=== PATIENT | female | born 1995 | race Caucasian/White ===

== ENCOUNTER 2019-05-19 13:04 | Day surgery (SDC) | payer OTHER ==
[2019-05-19] MEDS ORDERED: hydrALAZINE 20 MG/ML VIAL SLOW IVP PRN (14:36)
[2019-05-19] MEDS ORDERED: Metoclopramide HCl 10 MG/2 ML VIAL IVP PRN (14:37)
[2019-05-19] MEDS ORDERED: diphenhydrAMINE 50 MG/ML VIAL IVP PRN (14:39)
[2019-05-19] MEDS ORDERED: Lactated Ringer's 1,000 ML IV SCH (14:45)
[2019-05-19 15:02] VITALS: BMI 35.4
[2019-05-19] MEDS ORDERED: Fioricet 325/50/40 mg Tablet PO PRN (15:11)
--- NOTE | 2019-05-19 22:11 | PRG ---
DATE OF SERVICE: 05/19/2019 PRIMARY OB: Sienna Calderon MD CHIEF COMPLAINT: Headache. HISTORY OF PRESENT ILLNESS: The patient is a 23-year-old, G1, P0 female presenting to Labor and Delivery shortly after awaking for a headache that she rates a 7/10. The patient reports that she woke up this morning feeling numbness in her hand that she reports later went to her face and that resolved spontaneously and later developed headache that she reports is bilateral. The patient denies any history of headaches such as this one. Denies any history of migraines. Denies nausea, vomiting, or any specific light or sound sensitivity. The patient has not taken anything at home in an attempt to treat her headache. The patient denies any recent illness, fever, fall, headache, chest pain, shortness of breath, nausea, vomiting, diarrhea, constipation, hip problems, knee problems, muscle weakness, any vaginal bleeding, leakage of fluid, urinary urgency, or frequency. PAST MEDICAL HISTORY: Negative. PAST SURGICAL HISTORY: Noncontributory. ALLERGIES: AMOXICILLIN, CEFTIBUTEN, SULFAMETHOXAZOLE, AND TRIMETHOPRIM. SOCIAL HISTORY: Denies drug, alcohol, or tobacco use. CURRENT MEDICATIONS: vitamins. OB LABS: Unavailable at time of dictation. REVIEW OF SYSTEMS: Per HPI. PHYSICAL EXAMINATION: VITAL SIGNS: Blood pressure 103/63, heart rate of 81, and saturating 100% on room air. GENERAL: The patient does not appear to be in any distress. She has a pleasant affect and mood with frequent smiling. She is alert, oriented, cooperative, and pleasant to interact with. HEAD: Normocephalic and atraumatic. LUNGS: Clear to auscultation bilaterally. HEART: Has regular rate and rhythm. ABDOMEN: Gravid, soft, nontender. EXTREMITIES: Nontender and nonedematous. LABORATORY DATA: heart tracing shows the fetus with baseline in the 120s with moderate long-term variability, positive 15 x 15 accelerations, no decelerations and no contractions on the tocometer. The patient was treated with Reglan, Benadryl, and Fioricet. On re-evaluation, the patient reported that her headache had resolved and was resting in the room. The patient has been given one dose of Reglan, Benadryl, and Fioricet. ASSESSMENT AND PLAN: The patient is a 23-year-old female presenting with a headache that by history sounded as a possible migraine with presenting aura of tingling on the face. This did resolve with Reglan, Benadryl, and Fioricet. The patient was discharged home with reassurance and asked to follow up with her primary OB as scheduled. Job ID: [id number]
== END 2019-05-19 16:35 | disposition home health service (06) ==
LOC: L&D/OP 13:04
PROVIDERS: ATTEND Student in an Organized Health Care Education/Training Program
DX: O99.89 Other specified diseases and conditions complicating pregnancy, childbirth and the puerperium (principal); R51 Headache; Z3A.00 Weeks of gestation of pregnancy not specified; Z88.0 Allergy status to penicillin; Z88.1 Allergy status to other antibiotic agents; Z88.2 Allergy status to sulfonamides
CPT/HCPCS: 96360; 96361; 96375; 99282; J1200; J2765

== ENCOUNTER 2019-05-28 09:06 | Inpatient (IN) | payer OTHER ==
[2019-06-04] MEDS ORDERED: Bupivacaine HCl 0.5%/Epinephrine 1:200,000/PF 30 ml Vial ONE (18:00)
[2019-06-04] MEDS ORDERED: Bupivacaine 0.25% HCL 30 ML VIAL ONE (18:00)
[2019-06-04] MEDS ORDERED: hydrALAZINE 20 MG/ML VIAL SLOW IVP PRN (19:38)
[2019-06-04] MEDS ORDERED: Diphenoxylate HCl/Atropine Tablet PO PRN (19:38)
[2019-06-04] MEDS ORDERED: Ondansetron PF 4 MG/2 ML Vial IVP PRN (19:38)
[2019-06-04] MEDS ORDERED: Butorphanol Tartrate 1 MG/ML VIAL SLOW IVP PRN (19:38)
[2019-06-04] MEDS ORDERED: Carboprost 250 MCG/ML AMP IM PRN (19:38)
[2019-06-04] MEDS ORDERED: Zolpidem Tartrate 5 MG TAB PO PRN (19:38)
[2019-06-04] MEDS ORDERED: Methylergonovine 0.2 MG/ML VIAL IM PRN (19:38)
[2019-06-04] MEDS ORDERED: NS / Oxytocin 40 units/1000ml 1,000 ML IV PRN (19:38)
[2019-06-04] MEDS ORDERED: Lidocaine 1% (PF) 30 ML VIAL SC PRN (19:38)
[2019-06-04] MEDS ORDERED: HYDROcodone/Acetaminophen 5/325 mg Tablet PO PRN (19:38)
[2019-06-04] MEDS ORDERED: Misoprostol 200 MCG TAB PR PRN (19:38)
[2019-06-04] MEDS ORDERED: Acetaminophen 500 MG TAB PO PRN (19:38)
[2019-06-04] MEDS ORDERED: Promethazine HCl 25 MG/ML VIAL IM PRN (19:38)
[2019-06-04] MEDS ORDERED: Ibuprofen 800 MG TAB PO PRN (19:38)
[2019-06-04] MEDS ORDERED: NS w/ Oxytocin 10 units 500 ML IV SCH (19:45)
[2019-06-04 20:13] VITALS: BMI 36.3
[2019-06-04 20:37] LABS: Mean Corpuscular HGB CONC 33.8 g/dL (32.0-36.0); Mean Corpuscular Hemoglobin 30.8 pg (27.0-31.0); Mean Corpuscular Volume 91.2 fL (78.0-98.0); Mean Platelet Volume 9.1 fL (7.4-10.4); Platelet Count 140 thou/uL (130-400); RBC Distribution Width 13.3 % (11.5-14.5); Red Blood Cell (RBC) Count 3.88 mill/uL (4.20-5.40); White Blood Cell (WBC) Count 12.1 thou/uL (4.8-10.8)
[2019-06-04] MEDS: Lactated Ringer's 1,000 ML IV SCH (20:46)
[2019-06-04] MEDS: Misoprostol 100 MCG TAB VAG SCH (20:50)
[2019-06-04 22:10] LABS: Syphilis Antibody Nonreactive (Nonreactive); Syphilis Antibody Index 0.04 S/CO (<1.00 Non-Reactive)
[2019-06-04 23:34] LABS: HBSAg Index 0.13 S/CO (0-0.99); Hep B Surf Ag Non-Reactive S/CO (NonReactive)
[2019-06-05] MEDS: Misoprostol 100 MCG TAB VAG SCH ×3 (02:05→09:13)
[2019-06-05] MEDS: Lactated Ringer's 1,000 ML IV SCH ×2 (06:17→17:35)
[2019-06-05] MEDS ORDERED: Fentanyl 4 mcg/Bup 0.1% Cadd 100 ML ONE ×2 (08:45→18:07)
--- NOTE | 2019-06-05 09:07 | PDOC.LDHP ---
Labor and Delivery H&P Chief complaint: scheduled induction HPI: 23yo at 41w0d by LMP here for postdate IOL. Some painful ctx since 299, no VB LOF. Good FM. Current gestational age (weeks): 41 Due date: 05/28/19 Dating criteria: last menstrual period Grav: 1 Para: 0 Current complications: none Abnormal US findings: No Past Medical History: HPV Current medications: pre-kimo vitamins Previous surgical history: other (elbow surgery) Allergies/Adverse Reactions: Allergies Allergy/AdvReac Type Severity Reaction Status Date / Time amoxicillin Allergy Verified 06/04/19 20:03 ceftibuten [From Cedax] Allergy Hives Verified 06/04/19 20:03 sulfamethoxazole Allergy Hives Verified 06/04/19 20:03 [From Bactrim] trimethoprim [From Bactrim] Allergy Hives Verified 06/04/19 20:03 Social history: none - Physical Exam Vital signs reviewed and normal: yes General: NAD Heart: RRR Lungs: CTAB Abdomen: gravid Extremeties: no edema FHT: category 1 [place] contractions every: 3-5min - Vaginal Exam cm dilated: 3 Effacement: 50% Station: -3 (arom clear) - OB Labs Blood type: A RH: positive Antibody Screen: negative HIV: negative RPR: negative HEPSAg: negative 1 hour GCT: negative GBS: negative Urine drug screen: negative Rubella: immune - Assessment L&D Assessment: medically indicated induction - Plan Plan: admit to L&D, cervical ripening, labor augmentation if indicated, informed consent obtained, anesthesia consult for pain management
[2019-06-05] MEDS ORDERED: Fentanyl 100 MCG/2 ML VIAL ONE (09:29)
[2019-06-05] MEDS ORDERED: Fentanyl 100 MCG/2 ML VIAL EPIDURAL SCH (09:45)
[2019-06-05] MEDS ORDERED: ePHEDrine/0.9% NaCl/PF SYRINGE 50 mg/10 ml SLOW IVP PRN (11:04)
[2019-06-05] MEDS ORDERED: Naloxone HCl 0.4 mg/ml Vial IVP PRN ×2 (11:04)
[2019-06-05] MEDS ORDERED: Ondansetron PF 4 MG/2 ML Vial IVP PRN (11:04)
[2019-06-05] MEDS ORDERED: Promethazine HCl 25 MG/ML VIAL IM PRN (11:04)
[2019-06-05] MEDS ORDERED: diphenhydrAMINE 50 MG/ML VIAL IVP PRN (11:04)
[2019-06-05] MEDS ORDERED: Acetaminophen 325 MG TAB PO PRN (11:04)
[2019-06-05] MEDS ORDERED: Lactated Ringer's 500 ML IV PRN (11:04)
[2019-06-05] MEDS ORDERED: Communication Order-Pharmacy FS SCH (11:15)
[2019-06-05] MEDS ORDERED: Fentanyl 4 mcg/Bupivacaine 0.1% Cassette 100 ML EPIDURAL SCH (11:15)
--- NOTE | 2019-06-05 13:24 | PDOC.LDPN ---
Labor & Delivery Progress Note - Subjective Subjective: comfortable - Objective Vital signs reviewed and normal: yes General: NAD Uterine fundus: non tender Dilation: 4 Effacement: 50% Station: -2 FHT: category 1 [place] contractions every: 2-4min Plan: pitocin for augmentation
[2019-06-06] MEDS ORDERED: Azithromycin 500 MG in Sodium Chloride 0.9% 250 ML 250 ML IVPB SCH (00:45)
[2019-06-06] MEDS ORDERED: Bicitra 30 ML UDCUP PO SCH (00:45)
[2019-06-06] MEDS ORDERED: Clindamycin/D5W 900 MG in Premix Bag 1 BAG IVPB SCH (00:45)
[2019-06-06] MEDS ORDERED: Fentanyl 100 MCG/2 ML VIAL ONE (00:53)
--- NOTE | 2019-06-06 00:55 | PDOC.EVN ---
Event Note - Event Note Event Note: 06/06/2019 at 00:40 NRFHT's with deep late decelerations in 50's. Interventions taken to include position changes, discontinuation of pitocin, and maternal oxygen. FHT's returned to baseline 145, however, variability remained minimal which did not respond to scalp stimulation. Cervical check unchanged over period of 4 hours with adequate MVU's. Thorough discussion with patient regarding options including continuation of labor without augmentation with understanding that if necessary may have to proceed with urgent C/S if continuation of NRFHT's that do not respond to interventions. Patient opted to proceed with C/S given all information and options available. Will proceed with pLTCS for NRFHT's and arrest of dilation. Anesthesia notified. Mariaelena Bullard, DO PGY-3
[2019-06-06] MEDS ORDERED: Gentamicin Sulfate 340 MG in Sodium Chloride 0.9% 100 ML IVPB SCH (01:00)
[2019-06-06] MEDS ORDERED: Ondansetron PF 4 MG/2 ML Vial ONE ×2 (01:05→15:55)
[2019-06-06] MEDS ORDERED: ePHEDrine/0.9% NaCl/PF SYRINGE 50 mg/10 ml ONE (01:05)
[2019-06-06] MEDS ORDERED: PHENYLEPHRINE-NS 100 MCG/ML 10 ML SYRINGE ONE ×2 (01:05→15:55)
[2019-06-06] MEDS ORDERED: Dexamethasone 4 mg/ml Vial ONE (01:05)
[2019-06-06] MEDS ORDERED: Oxytocin 10 UNITS/ML VIAL ONE (01:05)
[2019-06-06] MEDS ORDERED: Ketorolac Tromethamine 30 MG/ML VIAL ONE ×2 (01:05→15:55)
[2019-06-06] MEDS ORDERED: MORPHINE 5 MG/10 ML PF VIAL ONE (01:07)
[2019-06-06] MEDS ORDERED: Meperidine HCl/PF 25 MG/ML VIAL SLOW IVP PRN (01:15)
[2019-06-06] MEDS ORDERED: Promethazine HCl 25 MG/ML VIAL IM PRN (01:15)
[2019-06-06] MEDS ORDERED: diphenhydrAMINE 50 MG/ML VIAL IVP PRN (01:15)
[2019-06-06] MEDS ORDERED: Ondansetron HCl/PF 4 MG/2 ML Vial IVP PRN (01:15)
[2019-06-06] MEDS ORDERED: Communication Order-Pharmacy FS SCH (01:15)
[2019-06-06] MEDS ORDERED: L&D-Morphine 4 MG/ML VIAL SLOW IVP PRN (01:15)
[2019-06-06] MEDS ORDERED: Ketorolac Tromethamine 30 MG/ML VIAL IVP PRN (01:15)
[2019-06-06] MEDS ORDERED: Ketorolac Tromethamine 30 MG/ML VIAL IVP SCH (01:15)
[2019-06-06] MEDS ORDERED: Naloxone HCl 0.4 mg/ml Vial IV PRN (01:15)
[2019-06-06] MEDS ORDERED: HYDROmorphone 2 MG/ML VIAL SLOW IVP PRN (01:15)
[2019-06-06] MEDS ORDERED: Naloxone HCl 0.4 mg/ml Vial IVP PRN ×2 (01:15)
[2019-06-06] MEDS ORDERED: Ondansetron PF 4 MG/2 ML Vial IVP PRN ×2 (01:15→02:38)
[2019-06-06] MEDS ORDERED: Promethazine HCl 25 MG SUPP PR PRN (01:15)
[2019-06-06] MEDS ORDERED: diphenhydrAMINE 50 MG/ML VIAL ONE ×2 (02:19→15:55)
[2019-06-06] MEDS ORDERED: Misoprostol 200 MCG TAB PR PRN (02:38)
[2019-06-06] MEDS ORDERED: Zolpidem Tartrate 5 MG TAB PO PRN (02:38)
[2019-06-06] MEDS ORDERED: Methylergonovine 0.2 MG/ML VIAL IM PRN (02:38)
[2019-06-06] MEDS ORDERED: hydrALAZINE 20 MG/ML VIAL SLOW IVP PRN (02:38)
[2019-06-06] MEDS ORDERED: Lanolin Ointment 7 GM TUBE TOP PRN (02:38)
[2019-06-06] MEDS ORDERED: diphenhydrAMINE 25 MG CAP PO PRN (02:38)
[2019-06-06] MEDS ORDERED: NS / Oxytocin 40 units/1000ml 1,000 ML IV SCH (02:45)
--- NOTE | 2019-06-06 02:52 | PDOC.OPDEL ---
OB Operative/Delivery Note Delivery Dr/Surgeon: Sanya Pre-Delivery Diagnosis: arrest of dilation, non-reassuring tracing Procedure/Post Delivery Dx: primary low transverse CS Weeks gestation: 41 (41.1 wks) Anesthesia: epidural - Findings A Sex: female Weight: 3933 kg - 1 min: 3 - 5 min: 9 - Additional Findings/Plan Placenta delivered: manual removal findings: low transverse hysterotomy without extension, normal uterus, other (Adhesions on left side of uterus made visualization of left ovary difficult. Right ovary appeared normal.) Estimated blood loss: 975 mL Compilations/Other Findings: Please see full dictation for further details. Post delivery plan: routine recovery
[2019-06-06] MEDS: Misoprostol 100 MCG TAB VAG SCH ×2 (05:30→05:31)
[2019-06-06] MEDS: Lactated Ringer's 1,000 ML IV SCH ×4 (05:30→16:31)
[2019-06-06] MEDS: Ibuprofen 800 MG TAB PO SCH ×3 (07:28→21:40)
[2019-06-06] MEDS: Ferrous Sulfate 325 MG TAB PO SCH ×2 (07:28→16:31)
[2019-06-06] MEDS: Prenatal Vitamin 1 TAB PO SCH (07:30)
[2019-06-06] MEDS: Docusate Calcium (SURFAK) 240 MG CAP PO SCH ×2 (07:30→21:40)
[2019-06-06] MEDS ORDERED: Varicella virus, LIVE 0.5 ML VIAL SC ONE (09:00)
[2019-06-06] MEDS ORDERED: Adacel (T-DAP) 0.5 ML SYRINGE IM ONE (09:00)
[2019-06-06] MEDS ORDERED: Measles/Mumps/Rubella 10 MCG/0.5 ML VIAL SC ONE (09:00)
[2019-06-06] MEDS: HYDROcodone/Acetaminophen 5/325 mg Tablet PO PRN ×2 (13:37→18:51)
[2019-06-06] MEDS ORDERED: Dexamethasone 20 MG/5 ML VIAL ONE (15:55)
[2019-06-06] MEDS ORDERED: Sodium Chloride 0.9% 10 ML ONE (18:50)
[2019-06-07] MEDS: HYDROcodone/Acetaminophen 5/325 mg Tablet PO PRN ×5 (04:05→23:42)
[2019-06-07] MEDS: Lactated Ringer's 1,000 ML IV SCH ×3 (04:09→18:24)
[2019-06-07] MEDS: Ibuprofen 800 MG TAB PO SCH ×3 (05:31→21:31)
--- NOTE | 2019-06-07 05:32 | PDOC.PP ---
Post Progress Note Post Day #: POD1 Subjective: Resting, no c/o. PO intake tolerated: yes Flatus: no Ambulation: yes Vital Signs (12 hours) Temp Pulse Resp BP Pulse Ox 06/07/19 04:05 98.3 F 82 18 107/55 L 06/07/19 00:40 98.1 F 83 18 98/55 L 06/06/19 21:40 98.0 F 92 18 107/59 L 98 Weight Weight 92.986 kg - Physical Examination General: NAD Respiratory: non-labored breathing Abdominal: no distention Skin: CS incision dry & intact Neurological: no gross focal deficits Psychiatric: normal affect Result Diagrams: 06/04/19 19:51 Additional Labs: Post Labs Blood Type A POSITIVE 06/04/19 21:13 Hep Bs Antigen Non-Reactive S/CO (NonReactive) 06/04/19 19:51 - Assessment/Plan Doing well. Saenz is out. Advance diet, ambulate.
[2019-06-07 05:47] LABS: Hemoglobin 8.8 g/dL (12.0-16.0); Mean Corpuscular HGB CONC 34.3 g/dL (32.0-36.0); Mean Corpuscular Hemoglobin 31.9 pg (27.0-31.0); Mean Corpuscular Volume 92.9 fL (78.0-98.0); Mean Platelet Volume 8.9 fL (7.4-10.4); Platelet Count 142 thou/uL (130-400); RBC Distribution Width 13.6 % (11.5-14.5); Red Blood Cell (RBC) Count 2.75 mill/uL (4.20-5.40); White Blood Cell (WBC) Count 14.9 thou/uL (4.8-10.8)
[2019-06-07] MEDS: Ferrous Sulfate 325 MG TAB PO SCH ×2 (09:19→18:36)
[2019-06-07] MEDS: Docusate Calcium (SURFAK) 240 MG CAP PO SCH ×2 (09:19→21:32)
[2019-06-07] MEDS: Simethicone Chewable 80 MG TAB PO PRN ×2 (09:19→19:41)
[2019-06-07] MEDS: Prenatal Vitamin 1 TAB PO SCH (09:19)
[2019-06-08] MEDS: Lactated Ringer's 1,000 ML IV SCH ×3 (00:06→19:38)
[2019-06-08] MEDS: HYDROcodone/Acetaminophen 5/325 mg Tablet PO PRN ×5 (04:00→23:27)
[2019-06-08] MEDS: Ibuprofen 800 MG TAB PO SCH ×3 (05:16→21:23)
[2019-06-08] MEDS: Ferrous Sulfate 325 MG TAB PO SCH ×2 (08:00→17:33)
[2019-06-08] MEDS: Prenatal Vitamin 1 TAB PO SCH (08:06)
[2019-06-08] MEDS: Docusate Calcium (SURFAK) 240 MG CAP PO SCH ×2 (08:06→21:23)
--- NOTE | 2019-06-08 08:09 | PDOC.PP ---
Post Progress Note Post Day #: 2 PO intake tolerated: yes Flatus: yes Ambulation: yes Vital Signs (12 hours) Temp Pulse Resp BP Pulse Ox 06/08/19 07:24 99.5 F 112 H 18 118/59 L 94 L 06/07/19 23:55 98.3 F 90 16 106/56 L 06/07/19 21:25 97.8 F 95 16 121/63 98 Weight Weight 205 lb - Physical Examination General: NAD Cardiovascular: RRR Respiratory: non-labored breathing Abdominal: no distention, appropriately TTP Fundus firm & at: umb Extremities: negative homans (B) Skin: CS incision dry & intact Neurological: no gross focal deficits Psychiatric: normal affect Result Diagrams: 06/07/19 05:31 Additional Labs: Post Labs Blood Type A POSITIVE 06/04/19 21:13 Hep Bs Antigen Non-Reactive S/CO (NonReactive) 06/04/19 19:51 - Assessment/Plan POD2 s/p PCS for AOD and NRFHT VSSAF Acute blood loss anemia, no sx anemia, cont iron and pnv on DC Met all milestones, pain controlled Rh pos RImm Cont postop care.
[2019-06-09] MEDS: Lactated Ringer's 1,000 ML IV SCH ×2 (00:01→12:04)
[2019-06-09] MEDS: Ibuprofen 800 MG TAB PO SCH ×2 (05:43→12:03)
[2019-06-09] MEDS: Prenatal Vitamin 1 TAB PO SCH (10:17)
[2019-06-09] MEDS: Ferrous Sulfate 325 MG TAB PO SCH (10:18)
[2019-06-09] MEDS: Docusate Calcium (SURFAK) 240 MG CAP PO SCH (10:18)
--- NOTE | 2019-06-09 10:33 | PDOC.PP ---
Post Progress Note Post Day #: 3 PO intake tolerated: yes Flatus: yes Ambulation: yes Vital Signs (12 hours) Temp Pulse Resp BP Pulse Ox 06/09/19 07:52 98.3 F 94 20 108/58 L 98 06/09/19 05:43 98.4 F 93 16 111/59 L 06/08/19 23:25 99.0 F 108 H 16 118/56 L Weight Weight 205 lb - Physical Examination General: NAD Respiratory: non-labored breathing Abdominal: no distention, appropriately TTP Fundus firm & at: umb-2 Extremities: negative homans (B) Skin: CS incision dry & intact Neurological: no gross focal deficits Psychiatric: normal affect Result Diagrams: 06/07/19 05:31 Additional Labs: Post Labs Blood Type A POSITIVE 06/04/19 21:13 Hep Bs Antigen Non-Reactive S/CO (NonReactive) 06/04/19 19:51 - Assessment/Plan POD3 s/p PCS for AOD VSS, febrile to 100.4 overnight, afebrile now.
[2019-06-09 11:48] VITALS: BP 123/69; TEMP 98.1
[2019-06-09] MEDS: HYDROcodone/Acetaminophen 5/325 mg Tablet PO PRN (12:04)
--- NOTE | 2019-06-10 00:53 | OP ---
DATE OF PROCEDURE: 06/06/2019 RESIDENT SURGEON: Mariaelena Bullard DO PROCEDURE PERFORMED: Primary low-transverse section. PREOPERATIVE DIAGNOSES: 1. Term intrauterine . 2. intolerance of labor, non-reassuring heart tones. 3. Arrest of dilation. POSTOPERATIVE DIAGNOSES: 1. Term intrauterine , delivered. 2. Primary low-transverse section. 3. Arrest of dilation. ANESTHESIA: Epidural. INDICATIONS: This is a 23-year-old G1, P0 who presented at 41 weeks for postdates induction of labor. Due to intolerance of labor with non-reassuring heart tones and arrest of dilation after greater than 4 hours with adequate MVU' s, the patient was taken back for primary low transverse after risks, benefits, alternatives were discussed. PROCEDURE IN DETAIL: After risks, benefits, and alternatives were explained to the patient, she gave informed consent. Preoperative antibiotics included gentamicin 5 mg/kg, clindamycin 900 mg x1 and azithromycin 500 mg x1. Of note, the antibiotic choice was dictated by patient's penicillin and cephalosporin allergy. The patient was taken back to the operating room, was placed in supine position with left lateral tilt and prepped and draped in the usual sterile fashion. A Pfannenstiel incision was made with a scalpel and carried down to the level of fascia, which was sharply nicked. The fascial cut was extended bilaterally with Frey scissors. Inferior and superior edges of the cut fascial edges were elevated with Mary clamps and underlying rectus muscles were sharply and bluntly dissected free. The recti were divided digitally and retracted manually. The peritoneum was entered bluntly and retracted manually. Bladder blade was placed. An Jacobo O was placed and a low-transverse score was made with a scalpel and the uterus was entered in the midline with the scalpel. Clear fluid was seen. The hysterotomy was extended manually. The was noted to be vertex and was delivered by fundal pressure. Mouth and nares were bulb suctioned. Cord was clamped and cut and grossly normal. Female infant was handed to the awaiting nurse. Cord gas was sent for analysis. Cord blood was also obtained. The placenta was manually extracted, found to be intact with three-vessel cord and sent for pathology. The uterus was externalized and the endometrium was curetted with a dry lap. A bladder blade was placed and the uterus was closed with a running locking #1 Monocryl suture followed by a running nonlocking #1 Monocryl suture. An additional layer was also used for hemostasis. The abdomen was irrigated with saline and suctioned free of clots. The uterus was internalized and hysterotomy was again noted to be hemostatic. The fascia was closed with a running nonlocking 0 PDS suture. The subcutaneous tissue was irrigated and bleeders were cauterized. The subcutaneous tissue was brought together using 2-0 plain gut. The skin was approximated using 4-0 monofilament. Dermabond was placed over the incision and then a pressure dressing was placed. All counts were correct. The patient tolerated the procedure well and was taken to the recovery room in stable condition. ESTIMATED BLOOD LOSS: 925 mL. COMPLICATIONS: None. SPECIMENS: Cord blood sent to lab for blood type, cord gas sent for analysis, placenta sent for analysis. FINDINGS: Grossly normal female infant with Apgars of 3 and 9 at 1 and 5 minutes respectively. DRAINS: Saenz to gravity, draining blood-tinged urine. We will keep an eye on this. It is likely from irritation at the bladder, but not from bladder trauma itself. Job ID: [id number] [facility]
== END 2019-06-09 14:15 | disposition home or self-care (01) | DRG 787 ==
LOC: L&D 06-04 19:19 → 3SW 06-06 05:05 → EDSTATUS 06-15 07:08
PROVIDERS: ADMIT Student in an Organized Health Care Education/Training Program; ATTEND Student in an Organized Health Care Education/Training Program
PROC: 10D00Z1 Extraction of Products of Conception, Low, Open Approach (ICD-10-PCS; principal; 2019-06-06)
PROC: 3E033VJ Introduction of Other Hormone into Peripheral Vein, Percutaneous Approach (ICD-10-PCS; 2019-06-06)
PROC: 3E0P7VZ Introduction of Hormone into Female Reproductive, Via Natural or Artificial Opening (ICD-10-PCS; 2019-06-06)
DX: O48.0 Post-term pregnancy (principal); D62 Acute posthemorrhagic anemia; O76 Abnormality in fetal heart rate and rhythm complicating labor and delivery; O32.4XX0 Maternal care for high head at term, not applicable or unspecified; O99.02 Anemia complicating childbirth; Z37.0 Single live birth; Z3A.41 41 weeks gestation of pregnancy; Z88.1 Allergy status to other antibiotic agents; Z88.2 Allergy status to sulfonamides
CPT/HCPCS: 36415; 36416; 51702; 82805; 85027; 86780; 86850; 86900; 86901; 87340; 88307; 90707; 90715; J0456; J0595; J0670; J1100; J1200; J1580; J1885; J2274; J2310; J2405; J2590; J3010; J3490; J7050; S0020